=== PATIENT | female | born 1995 | race Caucasian/White ===

== ENCOUNTER 2017-02-24 12:50 | Emergency (ER) | payer OTHER ==
[~2017-02-24] VITALS: Ht 165.1 cm; Wt 77.1 kg
--- NOTE | ~2017-02-24 | EKG ---
[address] [address] ELECTROCARDIOGRAM REPORT Name: ALEJANDRO MARQUEZ Room #: DEP Shawanda#: [id number] Admission: 02/24/17 Attend Phys: Discharge: 02/24/17 Date of : [birth year] Report #: [id number] THIS REPORT FOR: //name// [facility] ED Test Date: 2017-02-24 Test Time: 12:59:22 Pat Name: ALEJANDRO MARQUEZ Department: Room: Gender: F Director Dental Services: [id number] : 1995 Requested By: David Stroud Order Number: [id number] MD: Tadeo Bennett Measurements Intervals [place] Rate: 77 P: 6 VA: 164 QRS: 36 QRSD: 89 T: 47 QT: 384 QTc: 435 Interpretive Statements Sinus rhythm No significant abnormality No previous ECG available for comparison Electronically Signed On 02-25-2017 10:42:46 CDT by Tadeo Bennett [email or web address] <ELECTRONICALLY SIGNED> By: Tadeo Bennett MD, [facility] 02/25/17 1042 [id number] [id number] Tadeo Bennett MD, FACC /EPI
[2017-02-24] MEDS ORDERED: TRAZODONE HCL50 MG PO (13:10)
[2017-02-24] MEDS ORDERED: LEVORA-281 EACH PO (13:10)
[2017-02-24] MEDS ORDERED: LAMICTAL100 MG PO (13:10)
[2017-02-24] MEDS ORDERED: CLONAZEPAM0.5 MG PO (13:10)
[2017-02-24] MEDS ORDERED: ESKALITH CR450 MG PO (13:10)
[2017-02-24] MEDS ORDERED: VISTARIL 25 MG25 M1 PO (13:10)
[2017-02-24] MEDS ORDERED: EPIPEN0.3 MG/0.1 IM (13:11)
[2017-02-24 13:32] LABS: ABSOLUTE NEUTROPHILS 9.5 thou/uL (1.4-8.2); BASOPHILS 0.5 % (0.0-2.0); EOSINOPHILS 1.3 % (0.0-3.0); HEMATOCRIT 40.2 % (37.0-47.0); HEMOGLOBIN 13.6 gm/dL (12.0-15.0); LYMPHOCYTES 17.8 % (24.0-44.0); MCH 29.8 pg (26.0-34.0); MCHC 33.7 g/dL (28.0-37.0); MCV 88.4 fL (80.0-100.0); MONOCYTES 7.1 % (1.0-8.0); PLATELET COUNT 425 thou/uL (150-400); POLYS 73.3 % (36.0-66.0); RBC 4.55 mil/uL (4.20-5.00); RDW 12.9 % (10.5-14.5)
[2017-02-24 13:33] LABS: MANUAL DIFF NO
[2017-02-24 13:41] LABS: ANION GAP 12 mmol/L (7-16); BUN 15 mg/dL (7-18); CALCIUM 9.3 mg/dL (8.5-10.1); CHLORIDE 104 mmol/L (98-107); CO2 23 mmol/L (21-32); GLUCOSE 103 mg/dL (74-106); POTASSIUM 3.9 mmol/L (3.5-5.1); SODIUM 139 mmol/L (136-145)
[2017-02-24 13:50] LABS: TROPONIN-I < 0.04 ng/mL (<0.04-0.07)
[2017-02-24] MEDS ORDERED: NAPROSYN500 MG PO (14:38)
[2017-02-24 14:47] VITALS: BP 119/84
== END 2017-02-24 14:48 | disposition home or self-care (01) ==
LOC: ER 12:50
PROVIDERS: Emergency Medicine
DX: R07.89 Other chest pain (principal); F31.9 Bipolar disorder, unspecified; F10.99 Alcohol use, unspecified with unspecified alcohol-induced disorder